=== PATIENT | female | born 1985 | race Hispanic/Latino ===

== ENCOUNTER 2021-11-07 11:17 | Emergency (ER) | payer OTHER ==
--- OUTSIDE RECORDS SUMMARY | 2021-11-07 11:19 | XMS REPORT | Continuity of Care Document ---
:1985 Author Organization [facility] t Address [address] [place] [address] Care Team Providers Name Role Phone Unavailable Unavailable Unavailable Problems This patient has no known problems. Allergies, Adverse Reactions, Alerts This patient has no known allergies or adverse reactions. Medications This patient has no known medications. Procedures This patient has no known procedures. Results Test Description Test Time Test Comments Results Result Comments Source HEMOGLOBIN A1c 2021-08-18 08:53:20 Test Item Value Reference Range Interpretation Comme nts HEMOGLOBIN A1c (test code = 46063) 5.2 % 4.2-5.6 LIPID [id number] 03:02:00 Test Item Value Reference Range Interpretation Comments CHOLESTEROL (test 169 MG/DL <200 code = 2210) TRIGLYCERIDES (test 88 MG/DL <150 code = 2232) HDL CHOLESTEROL (test 59 MG/DL >39 code = 2220) CALC LDL CHOL (test 92 MG/DL <100 NOTE: C ALCULATED LDL code = 2237) IS BASED ON TAPAN-KEMP METHOD WHICHINCLUDES ADJUSTABLE TRIGLYCERIDE:VL DL CHOLESTEROL RAT IO.THIS FACTOR VARIES B Y MEASURED TRIGLY CERIDE AND NON-HDLCHOL ESTEROL CONCENTRATIONS WITH INCREASED CALCU LATED LDL SEENIN HIGH ER TRIGLYCERIDE OR LOWER NON-HDL SPECIME NS. FOR MOREINFORMATION , SEE CLIENT ANNOUNCE MENT AT [email or web address] [email or web address] RATIO LDL/HDL 1.56 RATIO <3.22 (test code = 2238) COMPREHENSIVE METABOLIC [id number] 03:02:00 Test Item Value Reference Range Interpretation Comments GLUCOSE (test code = 91 MG/DL 70-99 2216) BUN (test code = 6 MG/DL 6-20 2207) CREATININE (test 0.67 MG/DL 0.60-1.30 code = 2214) eGFR (2020 CKD-EPI) 116 >60 (test code = 94052) ML/MIN/1.73 CALC BUN/CREAT (test 9 RATIO 6-28 code = 223) SODIUM (test code = 142 MEQ/L 441-106 2605) POTASSIUM (test code 3.9 MEQ/L 3.5-5.4 = 2227) CHLORIDE (test code 104 MEQ/L 95-107 = 2214) CARBON DIOXIDE (test 24 MEQ/L 19-31 code = 2205) CALCIUM (test code = 9.7 MG/DL 8.5-10.5 2208) PROTEIN, TOTAL (test 8.1 G/DL 6.1-8.3 code = 2228) ALBUMIN (test code = 5.0 G/DL 3.5-5.2 2200) CALC GLOBULIN (test 3.1 G/DL 1.9-3.7 code = 2239) CALC A/G RATIO (test 1.6 RATIO 1.0-2.6 code = 2233) BILIRUBIN, TOTAL 0.5 MG/DL See_Comment [Automated message] (test code = 2206) The [employer] which generated this result transmitted ref erence range: <=1.2. T he reference range was not used to int erpret this result as normal/abnormal . ALKALINE PHOSPHATASE 69 U/L 40-112 (test code = 2203) AST (test code = 16 U/L 9-40 2217) ALT (test code = 9 U/L 5-40 UNLESS OTH ERWISE 2218) INDICATED, ALL TESTING PERFORM [facility] AL. [address] [place] [address] [id number] [facility] DIRECTOR: INGRID MCLAIN M.D. CLIA NUMBER [id number] CAP ACCREDITATION N O. [id number]
--- NOTE | 2021-11-07 13:39 | EDPHYS ---
[facility] Name: Ashley Andersen Age: 36 yrs Sex: Female : 1985 Arrival Date: 11/07/2021 Time: 11:28 Bed 14 Private MD: ED Physician Juan Jose Jasso HPI: 11/07 13:34 This 36 yrs old Female presents to ER via Ambulatory with complaints of Psych jmm Problem. 13:34 Is a 36-year-old female with history of schizophrenia the presents emerged department jmm with occasional hallucinations. Denies suicidal or homicidal ideations. States she currently is on her medications. Denies command hallucinations.. 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 Flu vaccine is up to date. - Social history:: Smoking status: Patient denies any tobacco usage or history of. ROS: 13:34 Constitutional: Negative for fever, chills, and weight loss, Cardiovascular: Negative jmm for chest pain, palpitations, and edema, Respiratory: Negative for shortness of breath, cough, wheezing, and pleuritic chest pain. 13:34 Psych: Positive for auditory hallucinations, visual hallucinations, Negative for homicidal ideation, suicide gesture, suicidal ideation. 13:34 All other systems are negative. Exam: 13:34 Constitutional: This is a well developed, well nourished patient who is awake, alert, jmm and in no acute distress. Head/Face: atraumatic. Eyes: EOMI, no conjunctival erythema appreciated ENT: Moist Mucus Membranes Neck: Trachea midline, Supple Chest/axilla: Normal chest wall appearance and motion. Cardiovascular: Regular rate and rhythm. No edema appreciated Respiratory: Normal respirations, no respiratory distress appreciated Abdomen/GI: Non distended Back: Normal ROM Skin: General appearance color normal MS/ Extremity: Moves all extremities, no obvious deformities appreciated, no edema noted to the lower extremities Neuro: Awake and alert 13:34 Psych: Behavior/mood is pleasant, cooperative, Patient has no thoughts/intents to harm self or others. Delusions/hallucinations are not present. Vital Signs: 13:04 BP 128 / 75; Pulse 85; Resp 16 S; Temp 99.5(O); Pulse Ox 100% on R/A; Weight 77.11 kg jd3 (R); Height 5 ft. 4 in. (162.56 cm) (R); Pain 0/10; 14:15 BP 112 / 81; Pulse 91; Resp 16; Pulse Ox 100% ; em6 13:04 Body Mass Index 29.18 (77.11 kg, 162.56 cm) jd3 MDM: 13:21 Patient medically screened. [facility] 13:34 Data reviewed: vital signs, nurses notes. Counseling: I had a detailed discussion with kenya the patient and/or guardian regarding: the historical points, exam findings, and any diagnostic results supporting the discharge/admit diagnosis, the need for outpatient follow up, to return to the emergency department if symptoms worsen or persist or if there are any questions or concerns that arise at home. ED course: Patient is a pleasant. Normal behavior. Patient denies suicidal homicidal ideation. Denies command hallucinations. I did discuss follow-up options with psychiatrist. Patient appeared agreeable. Patient otherwise given strict return precautions if she does develop concerning hallucinations or suicidal or homicidal ideations.. Administered Medications: No medications were administered Disposition Summary: 11/07/21 13:39 Discharge Ordered Location: Home [facility] Condition: Stable [facility] Diagnosis - Other hallucinations [facility] Followup: [facility] - With: Gutierrez Ramesh MD - When: 2 - 3 days - Reason: Recheck today's complaints, Continuance of care, Re-evaluation by your physician Discharge Instructions: - Discharge Summary Sheet [facility] - Managing Schizophrenia [facility] Forms: - Medication Reconciliation Form [facility] - Thank You Letter [facility] - Antibiotic Education jm - Prescription Opioid Use [facility] Signatures: Juan Jose Jasso MD MD cha Mickail, Joel, PA PA jmm Davies, Jonathon, RN RN jd3
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
[2021-11-07 19:13] VITALS: TEMP 99.5; O2SAT 100
[2021-11-07 19:15] VITALS: BP 112/81
== END 2021-11-07 14:21 | disposition home or self-care (01) ==
LOC: ER 11:17
DX: R44.2 Other hallucinations (principal)
CPT/HCPCS: 99283

== ENCOUNTER 2024-04-12 03:24 | Emergency (ER) | payer OTHER, SELFPAY ==
--- OUTSIDE RECORDS SUMMARY | 2024-04-12 03:27 | XMS REPORT | Continuity of Care Document ---
Author Name Unknown Address [address] [place] [address] [address] [place] [address] [facility] Address [address] [facility] [address] [place] [address] Care Team Providers Care Mining Manager Name Role Phone [email or web address] Attending Clinician Unavaila ble [email or web address] Admitting Clinician Unavaila ble Encounters Start Date/Time End Date/Time Encounter Type Admission Type Attending Clinicians Care Facility Care Department Encounter ID Source 2022-12-26 00:00:00 2022-12-26 00:00:00 Outpatient [email or web address] [email or web address] PRIV PRIV [id number] [facility] Results Test Description Test Time Test Comments Results Result Co mments Source LIPID [id number] 03:02:00* Test Item Value Reference Range Interpretation Comme nts CHOLESTEROL (test code = 2210) 169 MG/DL <200 TRIGLYCERIDES (test code = 2232) 88 MG/DL <150 HDL CHOLESTEROL (test code = 2220) 59 MG/DL >39 CALC LDL CHOL (test code = 2237) 92 MG/DL <100 NOTE: CALCULATED LDL IS BASED ON TAPAN-KEMP METHOD WHICHINCLUDES ADJUSTABLE TRIGLYCERIDE:VLDL CHOLESTEROL RATIO.THIS FACTOR VARIES BY MEASURED TRIGLYCERIDE AND NON-HDLCHOLESTEROL CONCENTRATIONS WITH INCREASED CALCULATED LDL SEENIN HIGHER TRIGLYCERIDE OR LOWER NON-HDL SPECIMENS. FOR MOREINFORMATION, SEE CLIENT ANNOUNCEMENT AT [email or web address] RATIO LDL/HDL (test code = 2238) 1.56 RATIO <3.22 COMPREHENSIVE METABOLIC [id number] 03:02:00* Test Item Value Reference Range Interpretation Comme nts GLUCOSE (test code = 2217) 91 MG/DL 70-99 BUN (test code = 2208) 6 MG/DL 6-20 CREATININE (test code = 2213) 0.67 MG/DL 0.60-1.30 eGFR (2020 CKD-EPI) (test code = ) 116 ML/MIN/1.73 >60 CALC BUN/CREAT (test code = 2234) 9 RATIO 6-28 SODIUM (test code = 2230) 142 MEQ/L 133-146 POTASSIUM (test code = 2227) 3.9 MEQ/L 3.5-5.4 CHLORIDE (test code = 2214) 104 MEQ/L 95-107 CARBON DIOXIDE (test code = 2205) 24 MEQ/L 19-31 CALCIUM (test code = 2208) 9.7 MG/DL 8.5-10.5 PROTEIN, TOTAL (test code = 2228) 8.1 G/DL 6.1-8.3 ALBUMIN (test code = 2200) 5.0 G/DL 3.5-5.2 CALC GLOBULIN (test code = 2239) 3.1 G/DL 1.9-3.7 CALC A/G RATIO (test code = 2233) 1.6 RATIO 1.0-2.6 BILIRUBIN, TOTAL (test code = 2206) 0.5 MG/DL See_Comment [Automated me ssage] The system which generated this result transmitted reference range: <=1.2. The reference range was not used to interpret this result as normal/abnormal. ALKALINE PHOSPHATASE (test code = 2203) 69 U/L 40-112 AST (test code = 2217) 16 U/L 9-40 ALT (test code = 2218) 9 U/L 5-40 UNLESS OTHERWISE INDICATED, ALL TESTING PERFORMED [email or web address] [facility] [employer] [address] [place] [id number] [employer] DRYING MACHINE OPERATOR: INGRID MCLAIN M.D. CLIA NUMBER [id number] [facility] [place]. [id number]
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
[2024-04-12 04:50] VITALS: BP 130/89; TEMP 99.4; O2SAT 100
== END 2024-04-12 04:46 | disposition home or self-care (01) ==
LOC: ER 03:24
DX: F20.9 Schizophrenia, unspecified (principal)
CPT/HCPCS: 99283